=== PATIENT | male | born 1990 | race Caucasian/White ===

== ENCOUNTER 2019-06-18 14:29 | Emergency (ER) | payer MEDICAID, OTHER ==
[~2019-06-18] VITALS: Ht 177.8 cm; Wt 84.0 kg
[2019-06-18 14:35] VITALS: BP 146/77
[2019-06-18] MEDS ORDERED: CLON-527 PO (15:32)
== END 2019-06-18 15:56 | disposition home or self-care (01) ==
LOC: ER 14:31
DX: F41.9 Anxiety disorder, unspecified (principal); Z76.0 Encounter for issue of repeat prescription; Z79.899 Other long term (current) drug therapy
CPT/HCPCS: 99283